=== PATIENT | female | born 1965 | race Caucasian/White ===

== ENCOUNTER → 2017-08-19 | Outpatient (CLI) | payer OTHER ==
--- NOTE | 2017-08-19 23:44 | Diagnostic Imaging Report ---
History: Right shoulder and neck pain Comparison studies: None Technique: Sagittal T1, T2 and IR, axial T2 and axial gradient echo Intravenous contrast: None Findings: Airway: Patent. Alignment: Normal lordosis. No scoliosis. Cervicomedullary junction: No abnormalities. Patent foramen magnum. Soft tissues: No T2 hyperintense inflammatory changes. Spinal cord: Normal in size and signal from the foramen magnum through T1. Vertebrae: Normal in height and signal intensity. No fractures, infection or neoplasm. Postsurgical changes: Patient status post anterior cervical fusion at C5-6. Hardware artifacts prevent adequate evaluation of the vertebral bodies and of the intervening disc space Degenerative changes: Patent spinal canal and foramina from C2 to T1 No disc herniations. IMPRESSION: 1. Patient status post anterior cervical fusion at C5-6. Hardware artifacts prevent adequate evaluation of the C5 and C6 vertebral bodies and of the intervening disc space. 2. Otherwise, no abnormalities. Signed by: Dr. Reynaldo Vasquez M.D. on 08/19/2017 11:40 PM
== END ==
LOC: MRI 07:48
PROVIDERS: ATTEND Family Medicine
DX: M54.2 Cervicalgia (principal); M53.82 Other specified dorsopathies, cervical region; M25.511 Pain in right shoulder
CPT/HCPCS: 72141